=== PATIENT | female | born 1995 | race Caucasian/White ===

== ENCOUNTER 2020-02-05 13:00 | Outpatient (CLI) | payer MEDICAID, SELFPAY ==
[~2020-02-05] VITALS: Ht 154.9 cm; Wt 63.5 kg
== END 2020-02-05 14:00 | disposition still patient (30) ==
LOC: SLB 13:00 → EDSTATUS 02-07 07:30 → SDS 02-07 11:25 → SMU 02-07 11:25 → SDS 02-07 14:50 → SMU 02-07 14:50
PROVIDERS: ATTEND Otolaryngology
DX: Z01.812 Encounter for preprocedural laboratory examination (principal); D49.1 Neoplasm of unspecified behavior of respiratory system; J30.1 Allergic rhinitis due to pollen; J98.9 Respiratory disorder, unspecified; R09.81 Nasal congestion; Z32.00 Encounter for pregnancy test, result unknown; Z11.59 Encounter for screening for other viral diseases
CPT/HCPCS: 36415; 84703; U0003

== ENCOUNTER 2020-02-28 06:10 | Day surgery (SDC) | payer MEDICAID ==
[~2020-02-28] VITALS: Ht 157.5 cm; Wt 65.8 kg
[2020-02-28] MEDS ORDERED: OXYMETAZOLINE HCL 0.05% NASAL SPRAY NS ONE (07:23)
[2020-02-28] MEDS ORDERED: SUGAMMADEX SODIUM 200 MG/2 ML VIAL IV ONE (07:23)
[2020-02-28] MEDS ORDERED: MIDAZOLAM HCL 5 MG/5 ML VIAL IVP ONE (07:23)
[2020-02-28] MEDS ORDERED: LR 1,000 ML IV.SOLN IV ONE (07:23)
[2020-02-28] MEDS ORDERED: MUPIROCIN 2% TOPICAL OINTMENT 22 GM TP ONE (07:23)
[2020-02-28] MEDS ORDERED: SUCCINYLCHOLINE CHLORIDE 20 MG/ML(QUELICIN) IVP ONE (07:23)
[2020-02-28] MEDS ORDERED: ROCURONIUM BROMIDE 10 MG/ML (ZEMURON) IV ONE (07:23)
[2020-02-28] MEDS ORDERED: PROPOFOL 200MG/ 20ML VIAL (DIPRIVAN) IV ONE (07:23)
[2020-02-28] MEDS ORDERED: fentaNYL CITRATE 250 MCG/5 ML AMP IV ONE (07:23)
[2020-02-28] MEDS ORDERED: ePHEDrine sulfate 50 MG/ML VIAL IVP ONE (07:23)
[2020-02-28] MEDS ORDERED: ONDANSETRON HCL 4 MG/2 ML VIAL IVP ONE (07:23)
[2020-02-28] MEDS ORDERED: ISOFLURANE 15 MIN GAS INH ONE (07:23)
[2020-02-28] MEDS ORDERED: DEXAMETHASONE SOD PHOSPHATE 4 MG/ML VIAL IVP ONE (07:23)
[2020-02-28] MEDS ORDERED: NS IRRIG SOLN 1000 ML IR ONE (07:23)
[2020-02-28] MEDS ORDERED: LIDOCAINE/EPI 1% 1:100000 20 ML VIAL INJ ONE (07:23)
[2020-02-28] MEDS ORDERED: MEPERIDINE HCL/PF 25 MG/ML DISP.SYRIN IVP PRN (08:45)
[2020-02-28] MEDS ORDERED: ONDANSETRON HCL 4 MG/2 ML VIAL IVP PRN (08:45)
[2020-02-28] MEDS ORDERED: METOCLOPRAMIDE HCL 10 MG/2 ML VIAL IVP PRN (08:45)
[2020-02-28] MEDS ORDERED: LR 1,000 ML IV SCH (08:45)
[2020-02-28] MEDS ORDERED: MIDAZOLAM HCL 2 MG/2 ML VIAL (VERSED) IVP PRN (08:45)
[2020-02-28] MEDS ORDERED: HYDROmorphone 1 MG INJ. 1 MG/ML AMPUL IVP PRN ×2 (08:45)
[2020-02-28 12:54] VITALS: BP_SYST 123
== END 2020-02-28 13:50 | disposition home or self-care (01) ==
LOC: SMU 06:10 → SDS 06:10
PROVIDERS: ATTEND Otolaryngology
DX: J34.89 Other specified disorders of nose and nasal sinuses (principal); J32.9 Chronic sinusitis, unspecified; D38.5 Neoplasm of uncertain behavior of other respiratory organs; J33.9 Nasal polyp, unspecified; J98.9 Respiratory disorder, unspecified; R56.9 Unspecified convulsions; J30.1 Allergic rhinitis due to pollen; F41.9 Anxiety disorder, unspecified; Z88.0 Allergy status to penicillin; Z91.011 Allergy to milk products; Z88.8 Allergy status to other drugs, medicaments and biological substances; Z11.59 Encounter for screening for other viral diseases
CPT/HCPCS: 30140; 30520; 31256; 31257; 36415; 84703; 88304; 88305; 88311; C1726; C9399; J0330; J1100; J2250; J2405; J2704; J3010; J7120; U0003